=== PATIENT | female | born 1960 | race Caucasian/White ===

== ENCOUNTER 2019-05-16 23:10 | Emergency (ER) | payer OTHER ==
[~2019-05-16] VITALS: Ht 157.5 cm; Wt 60.3 kg
[2019-05-16 23:38] VITALS: Ht 157.5 cm; Wt 60.3 kg
[2019-05-17 01:21] VITALS: BP 119/78
== END 2019-05-17 01:21 | disposition home or self-care (01) ==
LOC: ED 23:10
DX: S81.012A Laceration without foreign body, left knee, initial encounter (principal); I10 Essential (primary) hypertension; E11.9 Type 2 diabetes mellitus without complications; E78.00 Pure hypercholesterolemia, unspecified; W01.0XXA Fall on same level from slipping, tripping and stumbling without subsequent striking against object, initial encounter; Y93.89 Activity, other specified; Y92.89 Other specified places as the place of occurrence of the external cause; Y99.8 Other external cause status
CPT/HCPCS: J2001

== ENCOUNTER 2019-05-19 08:45 | Emergency (ER) | payer OTHER ==
[~2019-05-19] VITALS: Ht 157.5 cm; Wt 60.3 kg
[2019-05-19 08:55] VITALS: BP 131/73; Ht 157.5 cm; Wt 60.3 kg
== END 2019-05-19 10:40 | disposition home or self-care (01) ==
LOC: ED 08:45
DX: S81.012D Laceration without foreign body, left knee, subsequent encounter (principal); E78.00 Pure hypercholesterolemia, unspecified; I10 Essential (primary) hypertension; E11.9 Type 2 diabetes mellitus without complications; X58.XXXD Exposure to other specified factors, subsequent encounter

== ENCOUNTER 2019-05-25 10:12 | Emergency (ER) | payer OTHER ==
[~2019-05-25] VITALS: Ht 157.5 cm; Wt 5.9 kg
[2019-05-25 10:19] VITALS: BP 133/83; Ht 157.5 cm; Wt 5.9 kg
== END 2019-05-25 10:58 | disposition home or self-care (01) ==
LOC: ED 10:12
DX: S81.012D Laceration without foreign body, left knee, subsequent encounter (principal); I10 Essential (primary) hypertension; E78.00 Pure hypercholesterolemia, unspecified; E11.9 Type 2 diabetes mellitus without complications; W01.0XXD Fall on same level from slipping, tripping and stumbling without subsequent striking against object, subsequent encounter